=== PATIENT | female | born 1990 | race Caucasian/White ===

== ENCOUNTER 2017-03-30 10:32 | Emergency (ER) | payer OTHER ==
[2017-03-30 11:08] VITALS: BP 120/65
--- NOTE | 2017-03-30 11:32 | UC ---
Respiratory Complaint HPI - HPI Summary HPI Summary: 26 yo female with cough/sinus pressure and pain/nasal congestion x days no f/c - History of Current Complaint Chief Complaint: UCRespiratory Stated Complaint: COLD Time Seen by Provider: 03/30/17 11:22 Hx Obtained From: Patient Hx Last Menstrual Period: 03/25/17 Onset/Duration: Gradual Onset, Lasting Days Timing: Constant Severity Initially: Moderate Severity Currently: Moderate Pain Intensity: 4 Pain Scale Used: 0-10 Numeric Character: Cough: Nonproductive Aggravating Factors: Nothing Alleviating Factors: Nothing Associated Signs And Symptoms: Positive: Nasal Congestion, Hoarseness, Sinus Discomfort - Allergies/Home Medications Allergies/Adverse Reactions: Allergies Allergy/AdvReac Type Severity Reaction Status Date / Time Penicillins AdvReac See Comment Verified 03/30/17 11:03 PMH/Surg Hx/FS Hx/Imm Hx Previously Healthy: Yes Other History Of: Negative For: HIV, Hepatitis B, Hepatitis C, Anticoagulant Therapy - Surgical History Surgical History: Yes Surgery Procedure, Year, and Place: c/sec - Family History Known Family History: Positive: Hypertension - Social History Alcohol Use: Rare Substance Use Type: None Smoking Status (MU): Former Smoker - Immunization History Most Recent Influenza Vaccination: Not the Season Review of Systems Constitutional: Fatigue Skin: Negative Eyes: Negative ENT: Dental Pain, Nasal Discharge, Sinus Congestion, Sinus Pain/Tenderness Respiratory: Other Cardiovascular: Negative Gastrointestinal: Negative Genitourinary: Negative Motor: Negative Neurovascular: Negative Musculoskeletal: Negative Neurological: Negative Psychological: Negative Is Patient Immunocompromised?: No All Other Systems Reviewed And Are Negative: Yes Physical Exam Triage Information Reviewed: Yes Appearance: Well-Appearing, No Pain Distress, Well-Nourished Vital Signs: Initial Vital Signs Temp 97.3 F 03/30/17 11:04 Pulse 76 03/30/17 11:04 Resp 18 03/30/17 11:04 BP 120/65 03/30/17 11:04 Pulse Ox 100 03/30/17 11:04 Vital Signs Reviewed: No Eyes: Positive: Conjunctiva Clear ENT: Positive: Hearing grossly normal, Nasal congestion, TM bulging, Sinus tenderness, Uvula midline. Negative: Tonsillar swelling, Tonsillar exudate, Hoarse voice Neck: Positive: Supple, Nontender, No Lymphadenopathy Respiratory: Positive: Lungs clear, Normal breath sounds, No respiratory distress, No accessory muscle use Cardiovascular: Positive: RRR, No Murmur Musculoskeletal: Positive: ROM Intact, No Edema Neurological: Positive: Alert Psychological Exam: Normal Skin Exam: Normal UC Diagnostic Evaluation - Laboratory O2 Sat by Pulse Oximetry: 100 - normal/not hypoxic Respiratory Course/Dx - Differential Dx/Diagnosis Provider Diagnoses: acute sinusitis Discharge - Discharge Plan Condition: Stable Disposition: HOME Prescriptions: DOXYcycline CAP(*) [DOXYcycline 100MG CAP(*)] 100 mg PO BID #20 cap Patient Education Materials: Sinusitis (ED) Referrals: Bruna Boyer MD [Primary Care Provider] - 5 Days (if not better) Additional Instructions: warm facial compresses saline nasal spray twice daily
== END 2017-03-30 11:38 | disposition home or self-care (01) ==
LOC: UCEAST 10:32
DX: J01.90 Acute sinusitis, unspecified (principal); Z87.891 Personal history of nicotine dependence
CPT/HCPCS: 99212; G0463

== ENCOUNTER 2017-04-16 19:36 | Emergency (ER) | payer OTHER ==
[2017-04-16 20:06] VITALS: BP 115/68
[2017-04-16] MEDS ORDERED: DOXYcycline CAP(*) 100 MG PO ONE (20:23)
--- NOTE | 2017-04-16 20:42 | UC ---
Bola Braxton Stephanie, scribed for Levy Nicholson MD on 04/16/17 at 2042 . Throat Pain/Nasal Joseph HPI - HPI Summary HPI Summary: Pt is a 26 y/o F with a sore throat that began about 2 weeks ago. She was on a course of Amoxicillin for 10 days and finished the course 3 days ago.Her symptoms subsided after the completion of her abx course but have since worsened. Symptoms include congestion with green/yellow mucus, sore throat, swelling in throat, rhinorrhea, sinus pain, and hoarseness of voice. - History of Current Complaint Chief Complaint: UCRespiratory Stated Complaint: LOSS OF VOICE Time Seen by Provider: 04/16/17 20:06 Hx Obtained From: Patient Hx Last Menstrual Period: 03/25/17 Onset/Duration: Lasting Weeks - 2, Still Present Pain Intensity: 6 Pain Scale Used: 0-10 Numeric Associated Signs & Symptoms: Positive: Hoarseness, Sinus Discomfort, Other - congestion with green/yellow mucus, sore throat, swelling in throat, rhinorrhea , pain in face, and hoarseness of voice - Allergies/Home Medications Allergies/Adverse Reactions: Allergies Allergy/AdvReac Type Severity Reaction Status Date / Time Penicillins AdvReac See Comment Verified 03/30/17 11:03 PMH/Surg Hx/FS Hx/Imm Hx Previously Healthy: Yes Other History Of: Negative For: HIV, Hepatitis B, Hepatitis C, Anticoagulant Therapy - Surgical History Surgical History: Yes Surgery Procedure, Year, and Place: c/sec - Family History Known Family History: Positive: Hypertension - Social History Alcohol Use: Rare Substance Use Type: None Smoking Status (MU): Former Smoker - Immunization History Most Recent Influenza Vaccination: Not the Season Review of Systems ENT: Sore Throat, Sinus Congestion - yellow/ green mucus, Sinus Pain/Tenderness , Other - throat swelling Respiratory: Other All Other Systems Reviewed And Are Negative: Yes Physical Exam Triage Information Reviewed: Yes Vital Signs: Initial Vital Signs Temp 97.8 F 04/16/17 20:03 Pulse 68 04/16/17 20:03 Resp 18 04/16/17 20:03 BP 115/68 04/16/17 20:03 Pulse Ox 100 04/16/17 20:03 Vital Signs Reviewed: Yes - Additional Comments General: well-appearing, no pain distress Skin: warm, color reflects adequate perfusion, dry Head: normal Eyes: EOMI, CHAYITO ENT: Posterior pharynx is erythematous. Tonsils 1+ bilaterally. Tonsils are symmetric. Positive anterior cervical lymphadenopathy. Voice is hoarse. Neck: supple, nontender Respiratory: CTA, breath sounds present Cardiovascular: RRR Abdomen: soft, nontender Bowel: present Musculoskeletal: normal, strength/ROM intact Neurological: normal, sensory/motor intact, A&O x3 Psychological: affect/mood appropriate Throat Pain/Nasal Course/Dx - Course Course Of Treatment: REPEAT DOXY X 10 DAY. NO EVIDENCE OF MASS. VOICE IS QUIET BUT NOT MUFFLED. THERE IS NO DIFFICULTY CONTROLLING THE AIRWAY. - Differential Dx/Diagnosis Provider Diagnoses: SINUSITIS AND LARYNGITIS Discharge - Discharge Plan Condition: Stable Disposition: HOME Prescriptions: DOXYcycline CAP(*) [DOXYcycline 100MG CAP(*)] 100 mg PO BID #20 cap Patient Education Materials: Sinusitis (ED), Laryngitis (ED) Referrals: Bruna Boyer MD [Primary Care Provider] - Additional Instructions: FOLLOW UP WITH YOUR DOCTOR. GET RECHECKED FOR ANY WORSENING OF YOUR CONDITION OR QUESTIONS OR CONCERNS. The documentation as recorded by the Bola jim Stephanie accurately reflects the service I personally performed and the decisions made by me, Levy Nicholson MD.
== END 2017-04-16 20:35 | disposition home or self-care (01) ==
LOC: UCEAST 19:36
DX: J32.9 Chronic sinusitis, unspecified (principal); J04.0 Acute laryngitis; Z88.0 Allergy status to penicillin; Z87.891 Personal history of nicotine dependence
CPT/HCPCS: 99212; A9270-GY; G0463

== ENCOUNTER → 2018-10-09 13:02 | Emergency (ER) | payer BC, OTHER ==
[~2018-10-09 13:02] MED LIST: Iohexol 300* (CONTRAST) 10 ML SDV IV ONE; NS 0.9% 1000 ML** 1,000 ML IV SCH; Ondansetron INJ* 2 MG/ML VIAL IV ONE; oxyCODONE/Acetamin 5/325 MG* TAB PO ONE
[2018-10-09 14:06] LABS: Hematocrit 32 % (35-47); Hemoglobin 9.5 g/dL (12.0-16.0); Mean Corpuscular HGB Conc 30 g/dL (31-36); Mean Corpuscular Hemoglobin 19 pg (27-31); Mean Corpuscular Volume 63 fL (80-97); Mean Platelet Volume 8.4 fL (7.4-10.4); Platelet Count 272 10^3/uL (150-450); Red Blood Count 5.06 10^6 /uL (3.70-4.87); Red Cell Distribution Width 19 % (10.5-15); White Blood Count 9.1 10^3/uL (3.5-10.8)
[2018-10-09 14:32] LABS: ALT 14 U/L (7-52); AST 15 U/L (13-39); Albumin 4.7 g/dL (3.2-5.2); Albumin/Globulin Ratio 2.4 (1-3); Alkaline Phosphatase 46 U/L (34-104); Anion Gap 6 mmol/L (2-11); BUN/Creatinine Ratio 11.8 (8-20); Blood Urea Nitrogen 8 mg/dL (6-24); C Reactive Protein 27.88 mg/L (<8.01); CO2 Carbon Dioxide 26 mmol/L (22-32); Calcium 9.4 mg/dL (8.6-10.3); Chloride 107 mmol/L (101-111); EGFR African American 124.7 (>60); Glucose 91 mg/dL (70-100); Potassium 3.9 mmol/L (3.5-5.0); Sodium 139 mmol/L (135-145); Total Protein 6.7 g/dL (6.4-8.9)
[2018-10-09 14:34] LABS: ABS Eosinophils 0.1 10^3/ul (0-0.6); ABS Lymphocytes 1.2 10^3/ul (1.0-4.8); ABS Monocytes 0.3 10^3/ul (0-0.8); ABS Neutrophils 7.5 10^3/ul (1.5-7.7); Eosinophil % 1.4 %; HCG Pregnancy < 0.60 mIU/mL
[2018-10-09 14:35] LABS: Microcytosis 3+
--- NOTE | 2018-10-09 15:21 | ED ---
Abdominal Pain/Female - HPI Summary HPI Summary: Pt is a 27 y/o F presenting to the ED with a chief complaint of abd pain onset yesterday, 10/08/18. She reports diaphoresis at night and chills. She denies nausea, vomiting, diarrhea, fever, chest pain, vaginal bleeding, vaginal discharge, and SOB. The pt still has her appendix, but notes hx of TSS and tubal ligation. - History of Current Complaint Chief Complaint: EDAbdPain Stated Complaint: ABD PAIN PER PT Time Seen by Provider: 10/09/18 15:14 Hx Obtained From: Patient Hx Last Menstrual Period: 03/25/17 ?: No Onset/Duration: Sudden Onset, Lasting Days, Still Present Timing: Days Severity Initially: Moderate Severity Currently: Severe Pain Intensity: 7 Pain Scale Used: 0-10 Numeric Location: Diffuse Radiates: No Character: Cramping Aggravating Factor(s): Nothing Alleviating Factor(s): Nothing Associated Signs and Symptoms: Positive: Diaphoresis. Negative: Fever, Vaginal Bleeding, Vaginal Discharge, Nausea, Vomiting, Diarrhea Allergies/Adverse Reactions: Allergies Allergy/AdvReac Type Severity Reaction Status Date / Time MS Penicillins [Penicillins] AdvReac See Comment Verified 10/09/18 15:40 PMH/Surg Hx/FS Hx/Imm Hx Previously Healthy: Yes Endocrine/Hematology History: Denies: Hx Anticoagulant Therapy, Hx Diabetes, Hx Thyroid Disease Cardiovascular History: Denies: Hx Congestive Heart Failure, Hx Deep Vein Thrombosis, Hx Hypertension , Hx Myocardial Infarction, Hx Pacemaker/ICD Respiratory History: Denies: Hx Asthma, Hx Chronic Obstructive Pulmonary Disease (COPD), Hx Lung Cancer, Hx Pneumonia, Hx Pulmonary Embolism GI History: Denies: Hx Gall Bladder Disease, Hx Gastrointestinal Bleed, Hx Ulcer, Hx Urosepsis History: Reports: Other Problems/Disorders - TSS Denies: Hx Kidney Stones, Hx Renal Disease Neurological History: Denies: Hx Dementia, Hx Migraine, Hx Seizures, Hx Transient Ischemic Attacks (TIA) Psychiatric History: Denies: Hx Anxiety, Hx Depression, Hx Schizophrenia, Hx Bipolar Disorder - Surgical History Surgery Procedure, Year, and Place: c/sec Infectious Disease History: No Infectious Disease History: Denies: Hx Clostridium Difficile, Hx Hepatitis, Hx Human Immunodeficiency Virus (HIV), Hx of Known/Suspected MRSA, Hx Shingles, Hx Tuberculosis, Hx Known/ Suspected VRE, Hx Known/Suspected VRSA, History Other Infectious Disease, Traveled Outside the [place] in Last 30 Days - Family History Known Family History: Positive: Hypertension - Social History Alcohol Use: Rare Hx Substance Use: No Substance Use Type: Reports: None Hx Tobacco Use: Yes Smoking Status (MU): Former Smoker Review of Systems Positive: Chills, Skin Diaphoresis. Negative: Fever Negative: Chest Pain Negative: Shortness Of Breath Positive: Abdominal Pain. Negative: Vomiting, Diarrhea, Nausea Negative: discharge, other - vaginal bleeding All Other Systems Reviewed And Are Negative: Yes Physical Exam - Summary Physical Exam Summary: Appearance: Well appearing, no pain distress Skin: warm, dry, reflects adequate perfusion Head/face: normal Eyes: EOMI, CHAYITO ENT: normal Neck: supple, non-tender Respiratory: CTA, breath sounds present Cardiovascular: RRR, pulses symmetrical Abdomen: soft, diffuse tenderness Musculoskeletal: normal, strength/ROM intact Neuro: normal, sensory motor intact, A&Ox3 Triage Information Reviewed: Yes Vital Signs On Initial Exam: Initial Vitals Temp Pulse Resp BP Pulse Ox 98.9 F 101 18 110/70 100 10/09/18 13:03 10/09/18 13:03 10/09/18 13:03 10/09/18 13:03 10/09/18 13:03 Vital Signs Reviewed: Yes Diagnostics - Vital Signs Vital Signs Temp Pulse Resp BP Pulse Ox 10/09/18 15:00 98.6 F 93 18 104/64 100 10/09/18 13:03 98.9 F 101 18 110/70 100 - Laboratory Lab Results: Lab Results 10/09/18 10/09/18 10/09/18 Range/Units 13:50 13:50 13:50 WBC 9.1 (3.5-10.8) 10^3/uL RBC 5.06 H (3.70-4.87) 10^6 /uL Hgb 9.5 L (12.0-16.0) g/dL Hct 32 L (35-47) % MCV 63 L (80-97) fL MCH 19 L (27-31) pg MCHC 30 L (31-36) g/dL RDW 19 H (10.5-15) % Plt Count 272 (150-450) 10^3/uL MPV 8.4 (7.4-10.4) fL Neut % (Auto) 82.3 % Lymph % (Auto) 13.0 % Mccracken % (Auto) 3.0 % Eos % (Auto) 1.4 % Baso % (Auto) 0.3 % Absolute Neuts (auto) 7.5 (1.5-7.7) 10^3/ul Absolute Lymphs (auto) 1.2 (1.0-4.8) 10^3/ul Absolute Monos (auto) 0.3 (0-0.8) 10^3/ul Absolute Eos (auto) 0.1 (0-0.6) 10^3/ul Absolute Basos (auto) 0.0 (0-0.2) 10^3/ul Absolute Nucleated RBC 0.0 10^3/ul Nucleated RBC % 0.0 Hypochromasia 1+ Anisocytosis 2+ Microcytosis 3+ Hem Pathologist Commnt Pending Sodium 139 (135-145) mmol/L Potassium 3.9 (3.5-5.0) mmol/L Chloride 107 (101-111) mmol/L Carbon Dioxide 26 (22-32) mmol/L Anion Gap 6 (2-11) mmol/L BUN 8 (6-24) mg/dL Creatinine 0.68 (0.51-0.95) mg/dL Est GFR ( Amer) 124.7 (>60) Est GFR (Non-Af Amer) 103.0 (>60) BUN/Creatinine Ratio 11.8 (8-20) Glucose 91 (70-100) mg/dL Lactic Acid 0.7 (0.5-2.0) mmol/L Calcium 9.4 (8.6-10.3) mg/dL Total Bilirubin 0.50 (0.2-1.0) mg/dL AST 15 (13-39) U/L ALT 14 (7-52) U/L Alkaline Phosphatase 46 (34-104) U/L C-Reactive Protein 27.88 H (<8.01) mg/L Total Protein 6.7 (6.4-8.9) g/dL Albumin 4.7 (3.2-5.2) g/dL Globulin 2.0 (2-4) g/dL Albumin/Globulin Ratio 2.4 (1-3) Lipase 16 (11.0-82.0) U/L Beta HCG, Quant < 0.60 mIU/mL Result Diagrams: 10/09/18 13:50 10/09/18 13:50 Lab Statement: Any lab studies that have been ordered have been reviewed, and results considered in the medical decision making process. - CT CT abd/pelv CT Interpretation Completed By: Radiologist Summary of CT Findings: Possible endometrial thickening and/or edema. Recommend correlation with pelvic ultrasound, if clinically indicated. ED physician has reviewed this report. - Ultrasound No standard instances Ultrasound Interpretation Completed By: Radiologist Summary of Ultrasound Findings: Transvaginal US: 1. No acute findings in the uterus. 2. Approximately 2.7 cm anechoic cyst with associated subcentimeter daughter cyst in the left ovary. 3. No sonographic evidence of ovarian torsion. ED physician has reviewed this report. Abdominal Pain Fem Course/Dx - Course Course Of Treatment: Pt is a 27 y/o F presenting to the ED with a chief complaint of abd pain onset yesterday, 10/08/18. She reports diaphoresis at night and chills. She denies nausea, vomiting, diarrhea, fever, chest pain, and SOB. The pt still has her appendix, but notes hx of TSS and tubal ligation. Abd/pelv CT shows: Possible endometrial thickening and/or edema. Recommend correlation with pelvic ultrasound, if clinically indicated. Transvaginal US shows: 1. No acute findings in the uterus. 2. Approximately 2.7 cm anechoic cyst with associated subcentimeter daughter cyst in the left ovary. 3. No sonographic evidence of ovarian torsion. Pt will be d/c'ed with dx including dysmenorrhea, abd pain, and anemia. She is stable and agreeable with this plan. - Diagnoses Differential Diagnosis: Positive: Appendicitis, Diverticulitis, Urinary Tract Infection Provider Diagnoses: Dysmenorrhea, Abdominal pain, Anemia Discharge - Sign-Out/Discharge Documenting (check all that apply): Patient Departure Patient Received Moderate/Deep Sedation with Procedure: No - Discharge Plan Condition: Stable Disposition: HOME Prescriptions: Ferrous Sulfate [Feosol] 325 mg PO BID #60 tablet oxyCODONE/Acetamin 5/325 MG* [Percocet 5/325 TAB*] 1 tab PO Q8H PRN #10 tab MDD 3 PRN Reason: Pain Patient Education Materials: Dysmenorrhea (ED) Referrals: Bruna Boyer MD [Primary Care Provider] - Additional Instructions: Please follow up with your primary care provider within the next 2-3 days. Return to the emergency department with any new or worsening symptoms. - Billing Disposition and Condition Condition: STABLE Disposition: Home - Attestation Statements Document Initiated by Margaux: Yes Documenting Scribe: Morelia Yang Provider For Whom Margaux is Documenting (Include Credential): Hero Pike MD. Scribe Attestation: Morelia Braxton, heribertoed for Hero Pike MD. on 10/09/18 at 2039. Scribe Documentation Reviewed: Yes Provider Attestation: The documentation as recorded by the Morelia jim accurately reflects the service I personally performed and the decisions made by Hero ahumada MD. Status of Scribe Document: Viewed
[2018-10-09 17:12] LABS: Urine Appearance Clear; Urine Bacteria Absent (Absent); Urine Bilirubin Negative (Negative); Urine Blood 1+ (Negative); Urine Color Yellow; Urine Glucose Negative (Negative); Urine Ketones 1+ (Negative); Urine Nitrite Negative (Negative); Urine Protein Negative (Negative); Urine Red Blood Cell Trace(0-2/hpf) (Absent); Urine Specific Gravity 1.008 (1.010-1.030); Urine Squamous Epithelial Cell Present (Absent); Urine Urobilinogen Negative (Negative); Urine White Blood Cell Trace(0-5/hpf) (Absent)
[2018-10-09 20:47] VITALS: BP 114/59
== END | disposition home or self-care (01) ==
LOC: ED 13:02
DX: N94.6 Dysmenorrhea, unspecified (principal); R10.9 Unspecified abdominal pain; D64.9 Anemia, unspecified; Z87.891 Personal history of nicotine dependence; Z88.0 Allergy status to penicillin
CPT/HCPCS: 36415; 74177; 76830; 80053; 81003; 81015; 83605; 83690; 84702; 85025; 85060; 86140; 87086; 96361; 96374; 99282; A9270-GY; J2405; Q9967

== ENCOUNTER 2019-02-24 18:58 | Emergency (ER) | payer BC ==
--- OUTSIDE RECORDS SUMMARY | 2019-02-24 19:17 | XMS REPORT ---
:1990 Author Organization [facility] Address [address] [place] [address] Care Team Providers Name Role Phone Kate Garcia Unavailable Unavailable PROBLEMS Type Condition ICD9-CM [id number] Onset Condition SNOMED Code Code Code Dates Status Problem Unspecified N83.202 Active [id number] ovarian cyst, left side Problem Excessive and N92.0 Active [id number] frequent menstruation with regular cycle ALLERGIES Substance Reaction Event Type Date Status Father allergic to penicillin Unknown Non Drug Allergy Jan, Active ENCOUNTERS Encounter Location Date Diagnosis [facility] [address] [facility] [address] [facility] [address], [address] [place], [place] [id number] [facility] [address] [facility] [address] [facility] Jan, Excessive and frequent [address] [place], menstruation with [place] [id number] regular cycle N92.0 [place] [facility] [address] Nov, Excessive and frequent OBGYN [facility], menstruation with [place] [id number] regular cycle N92.0 [place] [facility] [address] Nov, Excessive and frequent OBGYN [facility], menstruation with [place] [id number] regular cycle N92.0 [place] [facility] [address] Nov, OBGYN [place], [place] [id number] [facility] [address] [facility] Nov, Excessive and frequent [address] [place], menstruation with [place] [id number] regular cycle N92.0 [facility] [address] [facility] Nov, Excessive and frequent [address] [place], menstruation with [place] [id number] regular cycle N92.0 [place] [facility] [address] Nov, Excessive and frequent OBGYN [facility], menstruation with [place] [id number] regular cycle N92.0 and Unspecified ovarian cyst, left side N83.202 [place] [facility] [address] Nov, Excessive and frequent OBGYN [facility], menstruation with [place] [id number] regular cycle N92.0 and Unspecified ovarian cyst, left side N83.202 [facility] [address] [facility] Oct, Unspecified ovarian [address] [place], cyst, left side N83.202 [place] [id number] and Excessive and frequent menstruation with regular cycle N92.0 IMMUNIZATIONS No Known Immunizations SOCIAL HISTORY Never Assessed REASON FOR REFERRAL FUNCTIONAL STATUS PLAN OF CARE Activity Details Follow Up F/u 3 mo to reassess AUB. Reason: VITAL SIGNS Height 63 in 2019-01-17 Weight 125 lbs 2019-01-17 BMI 22.14 kg/m2 2019-01-17 Blood pressure systolic 110 mm Hg 2019-01-17 Blood pressure diastolic 60 mm Hg 2019-01-17 MEDICATIONS Medication Instructions Dosage Frequency Start Date End Date Duration Status Ibuprofen Active multivitamin Active iron Active Fish oil Active PROCEDURES No Known procedures RESULTS No Results REASON FOR VISIT post op Insurance Providers [facility] Member Patient Patient Patient Patient Patient Subscriber Subscriber Subscriber Group Insurance Plan Plan Plan Plan ID Relationship Address Phone Name Date of ID Name Date of No Type Insurance Insurance Insurance Coverage to Subscriber Address Phone Name Dates [employer] [phone] [employer] self [place] [id number] Blue [id number] 89 Blue [place] 0 Cross/Blue [place] Cross/Blue Shield [id number] Shield MEDICAL (GENERAL) HISTORY Type Description Date Medical History left ovarian cyst Medical History anemia Medical History Factor 5 Surgical History C. section 07/16/12 Surgical History C. section, BTL 08/12/16 Hospitalization History see above
[2019-02-24] MEDS ORDERED: Ondansetron INJ* 2 MG/ML VIAL IV ONE (19:22)
[2019-02-24] MEDS ORDERED: NS 0.9% 1000 ML** 1,000 ML IV ONE ×3 (19:22→21:51)
[2019-02-24] MEDS ORDERED: Acetaminophen TAB* 325 MG PO ONE ×2 (19:23→23:27)
[2019-02-24] MEDS ORDERED: Morphine 4 MG/ML VIAL (1 ml) 4 MG/ML VIAL IV ONE (19:23)
--- NOTE | 2019-02-24 19:32 | ED ---
Abdominal Pain/Female - HPI Summary HPI Summary: Patient complains of epigastric pain starting at 11 AM today that is progressive. Nausea vomiting 8. States recent diagnosis of Trichomonas and was given antibiotics one dose a week ago. Denies fever, cough, sore throat, CP , SOB, change in urine, change in BM, vaginal symptoms. Patient also recently started progesterone 3 days ago. LMP 4 days ago. Medical history is factor V, ovarian cyst left side. Abdominal surgical history is 2, BTL. - History of Current Complaint Chief Complaint: EDAbdPain Stated Complaint: ABD PAIN Time Seen by Provider: 02/24/19 19:13 Hx Obtained From: Patient Hx From Patient Unobtainable Due To: Dementia Hx Last Menstrual Period: 03/25/17 Onset/Duration: Sudden Onset Timing: Hours Severity Initially: Moderate Severity Currently: Moderate Pain Intensity: 10 Pain Scale Used: 0-10 Numeric Location: Diffuse Radiates: No Aggravating Factor(s): Nothing Alleviating Factor(s): Nothing Allergies/Adverse Reactions: Allergies Allergy/AdvReac Type Severity Reaction Status Date / Time MS Penicillins [Penicillins] AdvReac See Comment Verified 10/09/18 15:40 PMH/Surg Hx/FS Hx/Imm Hx Endocrine/Hematology History: Denies: Hx Anticoagulant Therapy, Hx Diabetes, Hx Thyroid Disease Cardiovascular History: Denies: Hx Congestive Heart Failure, Hx Deep Vein Thrombosis, Hx Hypertension , Hx Myocardial Infarction, Hx Pacemaker/ICD Respiratory History: Denies: Hx Asthma, Hx Chronic Obstructive Pulmonary Disease (COPD), Hx Lung Cancer, Hx Pneumonia, Hx Pulmonary Embolism GI History: Denies: Hx Gall Bladder Disease, Hx Gastrointestinal Bleed, Hx Ulcer, Hx Urosepsis History: Reports: Other Problems/Disorders - TSS Denies: Hx Kidney Stones, Hx Renal Disease Neurological History: Denies: Hx Dementia, Hx Migraine, Hx Seizures, Hx Transient Ischemic Attacks (TIA) Psychiatric History: Denies: Hx Anxiety, Hx Depression, Hx Schizophrenia, Hx Bipolar Disorder - Surgical History Surgery Procedure, Year, and Place: c/sec Infectious Disease History: No Infectious Disease History: Denies: Hx Clostridium Difficile, Hx Hepatitis, Hx Human Immunodeficiency Virus (HIV), Hx of Known/Suspected MRSA, Hx Shingles, Hx Tuberculosis, Hx Known/ Suspected VRE, Hx Known/Suspected VRSA, History Other Infectious Disease, Traveled Outside the [place] in Last 30 Days - Family History Known Family History: Positive: Hypertension - Social History Alcohol Use: Rare Hx Substance Use: No Substance Use Type: Reports: None Hx Tobacco Use: Yes Smoking Status (MU): Former Smoker Review of Systems Constitutional: Negative Eyes: Negative ENT: Negative Cardiovascular: Negative Respiratory: Negative Positive: Abdominal Pain, Vomiting, Nausea Genitourinary: Negative Musculoskeletal: Negative Skin: Negative Neurological: Negative Psychological: Normal All Other Systems Reviewed And Are Negative: Yes Physical Exam - Summary Physical Exam Summary: Tenderness in the epigastric area. Abdominal exam otherwise unremarkable. Triage Information Reviewed: Yes Vital Signs On Initial Exam: Initial Vitals Temp Pulse Resp BP Pulse Ox 101.3 F 118 16 130/82 98 02/24/19 19:00 02/24/19 19:00 02/24/19 19:00 02/24/19 19:00 02/24/19 19:00 Vital Signs Reviewed: Yes Appearance: Positive: Well-Appearing Skin: Positive: Warm Head/Face: Positive: Normal Head/Face Inspection Eyes: Positive: Normal ENT: Positive: Normal ENT inspection Neck: Positive: Supple Respiratory/Lung Sounds: Positive: Clear to Auscultation Cardiovascular: Positive: Normal Abdomen Description: Positive: Other: Musculoskeletal: Positive: Normal Neurological: Positive: Normal Psychiatric: Positive: Normal AVPU Assessment: Alert - [place] Coma Scale Best Eye Response: 4 - Spontaneous Procedures - Sedation Patient Received Moderate/Deep Sedation with Procedure: No Diagnostics - Vital Signs Vital Signs Temp Pulse Resp BP Pulse Ox 02/24/19 19:00 101.3 F 118 16 130/82 98 - Laboratory Result Diagrams: 02/24/19 19:47 02/24/19 19:47 Lab Statement: Any lab studies that have been ordered have been reviewed, and results considered in the medical decision making process. Abdominal Pain Fem Course/Dx - Course Course Of Treatment: Patient complains of epigastric pain starting at 11 AM today that is progressive. Nausea vomiting 8. States recent diagnosis of Trichomonas and was given antibiotics one dose a week ago. Denies fever, cough , sore throat, CP, SOB, change in urine, change in BM, vaginal symptoms. Patient also recently started progesterone 3 days ago. LMP 4 days ago. Medical history is factor V, ovarian cyst left side. Abdominal surgical history is 2, BTL. Patient initially tachycardic and febrile fever of 102. Vital signs otherwise within normal limits. Tachycardia and fever resolve with antipyretics. Episode of BP down in the 80s after administration of morphine. WBC 12.3. Anion gap 14. CO2 20. Lactic 2.4. Labs otherwise unremarkable. UA negative. Negative flu, negative strep. 3 L normal saline given. - Diagnoses Provider Diagnoses: Viral syndrome, Dehydration Discharge ED - Sign-Out/Discharge Documenting (check all that apply): Patient Departure - Discharge Plan Condition: Stable Disposition: HOME Prescriptions: Ondansetron ODT TAB* [Zofran 4 MG Odt TAB*] 4 mg PO Q8H PRN 4 Days #14 tab.odt PRN Reason: Nausea Patient Education Materials: Dehydration (ED), Viral Syndrome (ED) Referrals: Bruna Boyer MD [Primary Care Provider] - Additional Instructions: Alternate ibuprofen 400 mg with Tylenol 650 mg every 3 hours as needed for fever control. Take Zofran as directed for control of nausea. Drink plenty of fluids to maintain hydration. Rest. Return to the ED for any worsening symptoms. - Billing Disposition and Condition Condition: STABLE Disposition: Home
[2019-02-24 19:54] LABS: ABS Lymphocytes 0.3 10^3/ul (1.0-4.8); ABS Monocytes 0.3 10^3/ul (0-0.8); ABS Neutrophils 11.6 10^3/ul (1.5-7.7); Eosinophil % 0.4 %; Hematocrit 42 % (35-47); Hemoglobin 14.1 g/dL (12.0-16.0); Lymphocyte % 2.6 %; Mean Corpuscular HGB Conc 34 g/dL (31-36); Mean Corpuscular Hemoglobin 29 pg (27-31); Mean Corpuscular Volume 86 fL (80-97); Mean Platelet Volume 7.3 fL (7.4-10.4); Platelet Count 251 10^3/uL (150-450); Red Cell Distribution Width 14 % (10-15); White Blood Count 12.3 10^3/uL (3.5-10.8)
[2019-02-24 20:11] LABS: ALT 16 U/L (7-52); AST 14 U/L (13-39); Albumin 4.6 g/dL (3.2-5.2); Albumin/Globulin Ratio 2.6 (1-3); Alkaline Phosphatase 44 U/L (34-104); Anion Gap 14 mmol/L (2-11); BUN/Creatinine Ratio 25.7 (8-20); Blood Urea Nitrogen 19 mg/dL (6-24); C Reactive Protein 3.16 mg/L (<8.01); CO2 Carbon Dioxide 20 mmol/L (22-32); Calcium 9.4 mg/dL (8.6-10.3); Chloride 104 mmol/L (101-111); EGFR African American 112.3 (>60); EGFR Non-African American 92.8 (>60); Globulin 1.8 g/dL (2-4); Glucose 94 mg/dL (70-100); Potassium 3.8 mmol/L (3.5-5.0); Sodium 138 mmol/L (135-145); Total Protein 6.4 g/dL (6.4-8.9)
[2019-02-24 20:18] LABS: HCG Pregnancy < 0.60 mIU/mL
[2019-02-24] MEDS ORDERED: Ibuprofen TAB* 600 MG PO ONE (21:02)
[2019-02-24] MEDS ORDERED: Iohexol 300* (CONTRAST) 10 ML SDV IV ONE (21:55)
[2019-02-24 23:29] LABS: Urine Appearance Clear; Urine Bacteria Absent (Absent); Urine Bilirubin Negative (Negative); Urine Blood 2+ (Negative); Urine Color Yellow; Urine Glucose Negative (Negative); Urine Ketones 2+ (Negative); Urine Nitrite Negative (Negative); Urine Protein Negative (Negative); Urine Red Blood Cell Trace(0-2/hpf) (Absent); Urine Specific Gravity 1.031 (1.010-1.030); Urine Squamous Epithelial Cell Present (Absent); Urine Urobilinogen Negative (Negative); Urine White Blood Cell Absent (Absent)
[2019-02-25 01:54] LABS: Rapid Strep Molecular Negative (Negative)
[2019-02-25 02:01] LABS: Influenza A Molecular NEGATIVE (Negative); Influenza B Molecular NEGATIVE (Negative)
[2019-02-25 02:33] VITALS: BP 105/54
== END 2019-02-25 03:00 | disposition home or self-care (01) ==
LOC: ED 18:58
DX: B34.9 Viral infection, unspecified (principal); E86.0 Dehydration; R11.2 Nausea with vomiting, unspecified; Z87.891 Personal history of nicotine dependence; R10.9 Unspecified abdominal pain
CPT/HCPCS: 36415; 74177; 76705; 80053; 81003; 81015; 83605; 83690; 84702; 85025; 86140; 87040; 87651; 96361; 96374; 96375; 99284; A9270-GY; J2270; J2405; Q9967